=== PATIENT | male | born 1990 | race African-American/Black ===

== ENCOUNTER 2017-09-15 09:30 | Outpatient (CLI) | payer OTHER ==
--- NOTE | 2017-09-15 10:46 | XRay Report ---
BILATERAL ANKLES, 2 VIEWS: History: Bilateral ankle pain. Bone mineralization is normal. No acute osseous abnormality or joint pathology is identified. The soft tissues are unremarkable. IMPRESSION: Normal study.
== END 2017-09-15 09:31 | disposition home or self-care (01) ==
LOC: XRAY 09:30
PROVIDERS: ATTEND Internal Medicine
DX: M25.571 Pain in right ankle and joints of right foot (principal); M25.572 Pain in left ankle and joints of left foot; M54.9 Dorsalgia, unspecified; M54.2 Cervicalgia; M79.2 Neuralgia and neuritis, unspecified; M53.80 Other specified dorsopathies, site unspecified